=== PATIENT | male | born 1985 | race American Indian/Alaskan Native ===

== ENCOUNTER 2017-04-18 19:51 | Emergency (ER) | payer SELFPAY ==
--- NOTE | 2017-04-19 04:14 | XRay Report ---
FINAL REPORT PROCEDURE: XR CHEST ROUTINE 2V TECHNIQUE: PA and lateral chest radiographs were obtained. CPT 15568 HISTORY: cough COMPARISON: No prior studies are available for comparison. FINDINGS: Heart: Normal. Mediastinum/Vessels: Normal. Lungs/Pleural space: Normal. Bony thorax: No acute osseous abnormality. Other: IMPRESSION: Normal examination.
--- NOTE | 2017-04-19 04:30 | Emergency Department Report ---
- General Chief Complaint: Upper Respiratory Infection Stated Complaint: URI SX Time Seen by Provider: 04/19/17 03:01 Source: patient Mode of arrival: Ambulatory Limitations: No Limitations - History of Present Illness Initial Comments: This is a 31-year-old male accompanied by mother nontoxic, well nourished in appearance, no acute signs of distress presents to the ED with c/o of productive cough, rhinorrhea, sore throat, nasal congestion, and body aches x2 day. Patient describes productive cough as yellow mucus production. Patient denies any sick contact. Patient denies any recent travels, long car rides, or recent hospital stays. Patient stated had diarrhea x1 episode yesterday. Patient denies calf pain or calf tenderness. Patient denies drooling or hoarseness. Denies any hemoptysis. Patient denies chest pain, shortness of breath, fever, chills, nausea, vomiting, headache, stiff neck, numbness, tingling. Patient denies any allergies. Denies PMH. MD Complaint: cough, sore throat, rhinorrhea, nasal congestion -: days(s) (2) Severity: mild Severity scale (0 -10): 8 Quality: aching Consistency: constant Improves With: nothing Worsens With: nothing Associated Symptoms: rhinorrhea, nasal congestion, sore throat, cough. denies: fever, chills, myalgias, diaphoresis, headache, stiff neck, chest pain, shortness of breath, abdominal pain, nausea, vomiting, diarrhea, dysuria, rash, confusion, right sweats, weight loss, epistaxis, hoarseness, ear pain Treatments Prior to Arrival: none - Related Data Previous Rx's Medication Instructions Recorded Last Taken Type Ibuprofen [Motrin] 600 mg PO Q8H PRN #30 tablet 04/19/17 Unknown Rx Oseltamivir [Tamiflu] 75 mg PO BID #14 cap 04/19/17 Unknown Rx Allergies Allergy/AdvReac Type Severity Reaction Status Date / Time No Known Allergies Allergy Unverified 04/18/17 20:34 ED Review of Systems ROS: Stated complaint: URI SX Other details as noted in HPI Constitutional: denies: chills, fever Eyes: denies: eye pain, eye discharge, vision change ENT: throat pain. denies: ear pain Respiratory: cough. denies: shortness of breath, wheezing Cardiovascular: denies: chest pain, palpitations Endocrine: no symptoms reported Gastrointestinal: denies: abdominal pain, nausea, diarrhea Genitourinary: denies: urgency, dysuria Musculoskeletal: denies: back pain, joint swelling, arthralgia Skin: denies: rash, lesions Neurological: denies: headache, weakness, paresthesias Psychiatric: denies: anxiety, depression Hematological/Lymphatic: denies: easy bleeding, easy bruising ED Past Medical Hx - Past Medical History Previous Medical History?: No - Surgical History Past Surgical History?: No - Social History Smoking Status: Current Every Day Smoker Substance Use Type: None - Medications Home Medications: Home Medications Medication Instructions Recorded Confirmed Last Taken Type Ibuprofen [Motrin] 600 mg PO Q8H PRN #30 tablet 04/19/17 Unknown Rx Oseltamivir [Tamiflu] 75 mg PO BID #14 cap 04/19/17 Unknown Rx ED Physical Exam - General Limitations: No Limitations General appearance: alert, in no apparent distress - Head Head exam: Present: atraumatic, normocephalic, normal inspection - Eye Eye exam: Present: normal appearance, PERRL, EOMI. Absent: scleral icterus, conjunctival injection, nystagmus, periorbital swelling, periorbital tenderness Pupils: Present: normal accommodation - ENT ENT exam: Present: mucous membranes moist, TM's normal bilaterally, normal external ear exam - Expanded ENT Exam Expanded Ear exam: Present: normal external inspection Mouth exam: Present: normal external inspection, tongue normal. Absent: drooling, trismus, muffled voice, tongue elevation, laceration Teeth exam: Present: normal inspection Throat exam: Positive: tonsillar erythema, other (Uvula midline. No abscess or swelling noted. ). Negative: tonsillomegaly, tonsillar exudate, R peritonsillar mass, L peritonsillar mass - Neck Neck exam: Present: normal inspection, full ROM. Absent: tenderness, meningismus, lymphadenopathy, thyromegaly - Respiratory Respiratory exam: Present: normal lung sounds bilaterally. Absent: respiratory distress, wheezes, rales, rhonchi, stridor, chest wall tenderness, accessory muscle use, decreased breath sounds, prolonged expiratory - Cardiovascular Cardiovascular Exam: Present: regular rate, normal rhythm, normal heart sounds. Absent: irregular rhythm, systolic murmur, diastolic murmur, rubs, gallop - GI/Abdominal GI/Abdominal exam: Present: soft, normal bowel sounds. Absent: distended, tenderness, guarding, rebound, rigid, diminished bowel sounds - Rectal Rectal exam: Present: deferred - Extremities Exam Extremities exam: Present: normal inspection, full ROM, normal capillary refill. Absent: tenderness, pedal edema, joint swelling, calf tenderness - Back Exam Back exam: Present: normal inspection, full ROM. Absent: tenderness, CVA tenderness (R), CVA tenderness (L), muscle spasm, paraspinal tenderness, vertebral tenderness, rash noted - Neurological Exam Neurological exam: Present: alert, oriented X3, CN II-XII intact, normal gait, reflexes normal - Psychiatric Psychiatric exam: Present: normal affect, normal mood - Skin Skin exam: Present: warm, dry, intact, normal color. Absent: rash ED Course Vital Signs 04/18/17 20:34 Temperature 97.7 F Pulse Rate 68 Respiratory 18 Rate Blood Pressure 132/66 O2 Sat by Pulse 99 Oximetry - Reevaluation(s) Reevaluation #1: 04/19/17 04:28 Patient is speaking in full sentences with no signs of distress noted. ED Medical Decision Making - Medical Decision Making This is a 31-year-old male that presents with flu like symptoms. Patient is stable and was examined by me. Chest xray has been obtained and dictated by radiologist with normal exam. Patient notified of x-ray results with no question or by the patient. Negative influenza swab. Vital signs stable prior to discharge. Patient is afebrile. Normal heart rate. I'll treat patient empirically with Tamiflu due to symptoms at discharge. Patient was orally rehydrated in the ER and patient tolerated well with no signs of nasuea or vomiting. Patient was instructed Follow-up with a primary care doctor in 3-5 days or if symptoms worsen and continue return to emergency room as soon as possible. At time time of discharge, the patient does not seem toxic or ill in appearance. No acute signs of distress noted. Patient agrees to discharge treatment plan of care. No further questions noted by the patient. This chart is dictated with using [employer] Critical care attestation.: If time is entered above; I have spent that time in minutes in the direct care of this critically ill patient, excluding procedure time. ED Disposition Clinical Impression: Influenza Disposition: DC-01 TO HOME OR SELFCARE Is pt being admited?: No Does the pt Need Aspirin: No Condition: Stable Instructions: Ibuprofen (By mouth), Oseltamivir (By mouth), Influenza (ED) Additional Instructions: Follow-up with a primary care doctor in 3-5 days or if symptoms worsen and continue return to emergency room as soon as possible. Increase rest, hydration, and take Motrin/Tylenol [id number] if fever presents. Prescriptions: Ibuprofen [Motrin] 600 mg PO Q8H PRN #30 tablet PRN Reason: Pain Oseltamivir [Tamiflu] 75 mg PO BID #14 cap Referrals: ROULA BRAVO MD [Primary Care Provider] - 3-5 Days PRIMARY CARE, [Referring] - 3-5 Days [facility] [place] [Outside] - 3-5 Days [facility] [Outside] - 3-5 Days Forms: Work/School Release Form(ED)
[2017-04-19 06:39] VITALS: BP 137/68
== END 2017-04-19 07:07 | disposition home or self-care (01) ==
LOC: ED 19:51
DX: J11.1 Influenza due to unidentified influenza virus with other respiratory manifestations (principal); F17.200 Nicotine dependence, unspecified, uncomplicated
CPT/HCPCS: 71046; 87400; 99283